=== PATIENT | male | born 1945 | race Two or more races ===

== ENCOUNTER → 2024-07-17 06:43 | Outpatient (CLI) | payer OTHER ==
[2024-07-17 07:43] LABS: HEMATOCRIT 37.9 % (39.0-48.0); HEMOGLOBIN 12.6 g/dL (13-16.00); MEAN CELL VOLUME 86.7 fL (80.0-100.00); MEAN CORPUSCULAR HEMOGLOBIN 28.8 pg (27.00-32.0); MEAN CORPUSCULAR HGB CONC 33.3 g/dl (32.0-36.0); RED BLOOD COUNT 4.37 M/uL (4.00-6.00); RED CELL DISTRIBUTION WIDTH 14.8 % (11.5-14.5)
[2024-07-17 07:49] LABS: ALBUMIN 3.7 gm/dL (3.4-5.0); BILIRUBIN TOTAL 0.35 mg/dL (0.3-1.2); CALCIUM 8.9 mg/dL (8.5-10.1); CREATININE SERUM 1.52 mg/dL (0.70-1.30); GFR 44.35; GLOBULINA 3.7 G/DL (2.4-3.5); POTASSIUM 4.74 mEq/L (3.5-5.1); TOTAL PROTEIN 7.4 gm/dL (6.4-8.2)
[2024-07-17 08:04] LABS: PLATELET COUNT 99 K/uL (150-450)
[2024-07-17 09:34] LABS: MANUAL PLATELET COUNT 250
[2024-07-17 09:35] LABS: PLATELET ESTIMATE NORMAL (NORMAL)
== END | disposition home or self-care (01) ==
LOC: LAB 06:43
PROVIDERS: ATTEND Internal Medicine Hematology & Oncology
DX: D70.8 Other neutropenia (principal); D69.6 Thrombocytopenia, unspecified; D51.3 Other dietary vitamin B12 deficiency anemia; D50.8 Other iron deficiency anemias; N18.32 Chronic kidney disease, stage 3b; D63.1 Anemia in chronic kidney disease; I10 Essential (primary) hypertension

== ENCOUNTER 2024-12-14 08:35 | Outpatient (CLI) | payer OTHER ==
[2024-12-14 09:18] LABS: HEMATOCRIT 38.7 % (39.0-48.0); MEAN CORPUSCULAR HEMOGLOBIN 28.8 pg (27.00-32.0); MEAN CORPUSCULAR HGB CONC 33.5 g/dl (32.0-36.0); PLATELET COUNT 74 K/uL (150-450); RED CELL DISTRIBUTION WIDTH 15.1 % (11.5-14.5)
[2024-12-14 10:32] LABS: ALBUMIN 3.9 gm/dL (3.4-5.0); BILIRUBIN TOTAL 0.54 mg/dL (0.3-1.2); CALCIUM 9.3 mg/dL (8.5-10.1); CREATININE SERUM 1.47 mg/dL (0.70-1.30); FERRITIN 211.1 NG/ML (26-388); GFR 46.09; GLOBULINA 3.9 G/DL (2.4-3.5); POTASSIUM 5.05 mEq/L (3.5-5.1); TOTAL PROTEIN 7.8 gm/dL (6.4-8.2)
[2024-12-14 13:32] LABS: FOLIC ACID > 20.00 ng/ml (4.78-20)
[2024-12-15 09:53] LABS: MANUAL PLATELET COUNT 180
[2024-12-15 09:54] LABS: PLATELET ESTIMATE NORMAL (NORMAL)
== END 2024-12-14 08:39 | disposition home or self-care (01) ==
LOC: LAB 08:35
PROVIDERS: ATTEND Internal Medicine Hematology & Oncology
DX: C93.10 Chronic myelomonocytic leukemia not having achieved remission (principal); D72.820 Lymphocytosis (symptomatic); D70.8 Other neutropenia; D69.9 Hemorrhagic condition, unspecified; D51.3 Other dietary vitamin B12 deficiency anemia; D50.8 Other iron deficiency anemias; N18.32 Chronic kidney disease, stage 3b; D63.1 Anemia in chronic kidney disease; I10 Essential (primary) hypertension; R79.9 Abnormal finding of blood chemistry, unspecified; R74.02 Elevation of levels of lactic acid dehydrogenase [LDH]; K76.89 Other specified diseases of liver